=== PATIENT | female | born 1950 | race Caucasian/White ===

== ENCOUNTER 2019-02-17 12:41 | Outpatient (CLI) | payer MEDICARE ==
[~2019-02-17 12:41] MED LIST: ZOLP-413 PO
== END 2019-02-17 23:59 | disposition home or self-care (01) ==
LOC: CFH 12:41
PROVIDERS: ATTEND Internal Medicine Cardiovascular Disease
DX: R07.9 Chest pain, unspecified (principal); R94.31 Abnormal electrocardiogram [ECG] [EKG]
CPT/HCPCS: 78452; 93017; A9502